=== PATIENT | male | born 1985 | race Two or more races ===

== ENCOUNTER 2017-11-30 00:24 | Emergency (ER) | payer BC ==
[~2017-11-30] VITALS: Ht 177.8 cm; Wt 70.3 kg
[2017-11-30] MEDS ORDERED: PROPRANOLOL HCL10 MG ORAL (00:38)
[2017-11-30] MEDS ORDERED: LOSARTAN-HCTZ1 EAC2 ORAL (00:38)
[2017-11-30] MEDS ORDERED: ATORVASTATIN CA10 MG ORAL (00:38)
[2017-11-30 00:50] VITALS: BP 130/80
[2017-11-30] MEDS ORDERED: BENADRYL25 MG ORAL (00:52)
--- NOTE | 2017-11-30 00:53 | Emergency Room Report ---
History of Present Illness General Chief Complaint: Fever Source: Patient Present Illness HPI Is a 32-year-old male with no past medical history. He presents with chief complaint of fever started couple days ago. Now start with a blister to his whole body. Last week he was sitting next to a friend who had shingles. It's itching. Better with Benadryl. No nausea no vomiting. No cough or congestion. Benadryl made it better. He never had Chickenpox before Allergies: Coded Allergies: SULFA (SULFONAMIDE ANTIBIOTICS) (Verified Allergy, Unknown, 11/30/17) Patient History Past Medical History: none, see triage record, old chart reviewed Past Surgical History: none Pertinent Family History: none Social History: Denies: smoking Immunizations: other Reviewed Nursing Documentation: PMH: Agreed, PSxH: Agreed Nursing Documentation-PMH Hx Hypertension: Yes Review of Systems Eye: Denies: eye pain, blurred vision ENT: Denies: ear pain, nose congestion, throat swelling Respiratory: Denies: cough, shortness of breath Cardiovascular: Denies: chest pain, palpitations Gastrointestinal: Denies: abdominal pain, diarrhea, nausea, vomiting Musculoskeletal: Denies: back pain, joint pain Skin: Reports: rash Neurological: Denies: headache, numbness Endocrine: Denies: increased thirst, increased urine Hematologic/Lymphatic: Denies: easy bruising All Other Systems: negative except mentioned in HPI Physical Exam Vital Signs Date Time Temp Pulse Resp B/P (MAP) Pulse Ox O2 Delivery O2 Flow Rate FiO2 11/30/17 00:30 98.4 76 18 134/81 Room Air 98.4 vitals normal Sp02 EP Interpretation: reviewed, normal General Appearance: well appearing, no apparent distress, alert Head: normocephalic, atraumatic Eyes: bilateral eye PERRL, bilateral eye EOMI ENT: hearing grossly normal, normal pharynx Neck: full range of motion, supple, no meningismus Respiratory: chest non-tender, lungs clear, normal breath sounds Cardiovascular #1: regular rate, rhythm, no murmur Gastrointestinal: normal bowel sounds, non tender, no mass, no organomegaly, no bruit, non-distended Musculoskeletal: back normal, gait/station normal, normal range of motion Neurologic: alert, oriented x3 Psychiatric: mood/affect normal Skin: warm/dry, rash - Vesicular lesions throughout body Medical Decision Making Diagnostic Impression: Primary Impression: Chicken pox Qualified Codes: B01.9 - Varicella without complication ER Course Patient with chickenpox. No complication. We'll discharge home. Told patient to avoid crowded or other people. We'll keep him off work for one week. Last Vital Signs Date Time Temp Pulse Resp B/P (MAP) Pulse Ox O2 Delivery O2 Flow Rate FiO2 11/30/17 00:30 98.4 76 18 134/81 Room Air 98.4 Status: unchanged Disposition: HOME, SELF-CARE Condition: Stable Scripts Diphenhydramine Hcl* (BENADRYL*) 25 Mg Capsule 50 MG ORAL Q6H Y for Itching, #30 CAP Prov: BANG BO M.D. 11/30/17 Additional Instructions: Follow-up your doctor in 7 days. Avoid crowds. Return if symptom worsen. BANG BO M.D. Nov 30, 2017 00:53
[2017-11-30 01:00] VITALS: BP 130/80
== END 2017-11-30 01:00 | disposition home or self-care (01) ==
LOC: EMR 00:55
DX: B01.9 Varicella without complication (principal); I10 Essential (primary) hypertension; Z88.2 Allergy status to sulfonamides
CPT/HCPCS: 99283

== ENCOUNTER 2019-05-09 22:00 | Emergency (ER) | payer SELFPAY ==
[~2019-05-09 22:00] MED LIST: ATORVASTATIN CA10 MG ORAL; BENADRYL25 MG ORAL; LOSARTAN-HCTZ1 EAC2 ORAL; PROPRANOLOL HCL10 MG ORAL
== END 2019-05-09 22:40 | disposition left against medical advice (07) ==
LOC: EMR 22:40
DX: Z53.21 Procedure and treatment not carried out due to patient leaving prior to being seen by health care provider (principal)